=== PATIENT | female | born 2000 ===

== ENCOUNTER 2020-02-17 17:16 | Emergency (ER) | payer SELFPAY ==
[~2020-02-17] VITALS: Ht 154.9 cm; Wt 52.7 kg
--- NOTE | 2020-02-17 18:01 | NUR ---
PT IN BATHROOM
[2020-02-17] MEDS ORDERED: IBUPROFEN 200 MG TABLET ONE (18:29)
[2020-02-17] MEDS ORDERED: IBUPROFEN 200 MG TABLET PO ONE (18:30)
[2020-02-17 18:48] LABS: BASOPHILS # (AUTO) 0.03 x10^3/uL (0-0.3); BASOPHILS % (AUTO) 0 % (0-1); EOSINOPHILS # (AUTO) 0.02 x10^3/uL (0-0.8); EOSINOPHILS % (AUTO) 0 % (1-7); LYMPHOCYTES # (AUTO) 1.41 x10^3/uL (1-6.1); LYMPHOCYTES % (AUTO) 11 % (22-44); MD NO; MEAN CORPUSCULAR HEMOGLOBIN 31.4 pg (27.0-34.8); MEAN CORPUSCULAR HGB CONC 33.9 g/dL (32.4-35.8); MEAN CORPUSCULAR VOLUME 92.7 fL (80-100); MEAN PLATELET VOLUME 7.4 fL (7.4-10.4); MONOCYTES # (AUTO) 0.68 x10^3/uL (0-1.4); MONOCYTES % (AUTO) 6 % (2-9); NEUTROPHILS # (AUTO) 10.23 x10^3/uL (1.8-8.0); NEUTROPHILS % (AUTO) 83 % (42-75); PLATELET COUNT 372 x10^3/uL (130-400); RED BLOOD COUNT 4.76 x10^6/uL (3.82-5.3); RED CELL DISTRIBUTION WIDTH 13.4 % (9.6-15.2)
[2020-02-17 19:15] VITALS: BP 112/79
== END 2020-02-17 23:08 | disposition home or self-care (01) ==
LOC: ED 19:45
DX: N94.6 Dysmenorrhea, unspecified (principal); F17.200 Nicotine dependence, unspecified, uncomplicated
CPT/HCPCS: 36415; 84702; 85025; 99283